=== PATIENT | male | born 1955 | race African-American/Black ===

== ENCOUNTER 2017-10-23 09:34 | Emergency (ER) | payer SELFPAY ==
[~2017-10-23] VITALS: Ht 193 cm; Wt 93.0 kg
--- NOTE | 2017-10-23 10:53 | Diagnostic Imaging Report ---
Indication: pain Right hand pain Findings: 3 views of the right hand were obtained. There is a crush injury and fracture of the distal phalange of the second finger. Soft tissue irregularity also noted. The remainder of the exam is negative. There is mild arthrosis involving most of the joints in the hand and wrist. IMPRESSION: Severe fracture of the second distal phalange
[2017-10-23 13:09] VITALS: BP 176/80
[2017-10-23] MEDS ORDERED: Bacitracin Oint UD TOPIC ONE ×2 (13:19→13:30)
[2017-10-23] MEDS ORDERED: AUGMENTIN 875-1 EAC1 ORAL (13:48)
[2017-10-23] MEDS ORDERED: NORCO 5-325 TA1 EACH ORAL (13:48)
[2017-10-23 14:00] VITALS: BP 159/98
--- NOTE | 2017-10-23 17:17 | Emergency Room Report ---
History of Present Illness General Chief Complaint: Upper Extremity Injury Source: Patient Present Illness HPI 62-year-old male presents ED with injury to his right index finger. Crush injury today at work. States the nail is loose. Tetanus is up-to-date. Pain is throbbing, 9 out of 10, nonradiating. Denies any other injuries. No other aggravating or relieving factors. Denies any other associated symptoms Allergies: Uncoded Allergies: SEAFOOD (Allergy, Unknown, 10/23/17) Patient History Past Medical History: asthma Past Surgical History: none Pertinent Family History: none Social History: Denies: smoking, alcohol use, drug use Immunizations: UTD Reviewed Nursing Documentation: PMH: Agreed, PSxH: Agreed Nursing Documentation-PMH Hx Asthma: Yes Review of Systems All Other Systems: negative except mentioned in HPI Physical Exam Vital Signs Date Time Temp Pulse Resp B/P (MAP) Pulse Ox O2 Delivery O2 Flow Rate FiO2 10/23/17 09:50 97.9 77 18 198/84 98 Room Air 97.9 Sp02 EP Interpretation: reviewed, normal General Appearance: no apparent distress, alert, GCS 15, non-toxic Head: normocephalic Eyes: bilateral eye normal inspection, bilateral eye PERRL ENT: normal ENT inspection Neck: normal inspection Respiratory: normal inspection Cardiovascular #1: normal inspection Gastrointestinal: normal inspection Rectal: deferred Genitourinary: no CVA tenderness Musculoskeletal: tender - crush injury to distal aspect R index finger. nail loose. laceration to nailbed. grossly deformed Neurologic: alert, oriented x3, responsive, motor strength/tone normal, sensory intact, speech normal Psychiatric: normal inspection Skin: normal inspection Lymphatic: normal inspection Medical Decision Making Diagnostic Impression: Primary Impression: Nailbed laceration, finger Qualified Codes: S61.319A - Laceration without foreign body of unspecified finger with damage to nail, initial encounter Additional Impression: Finger fracture Qualified Codes: S62.660A - Nondisplaced fracture of distal phalanx of right index finger, initial encounter for closed fracture ER Course Hospital Course 62-year-old male presents ED with bleeding, loose nail secondary to crush injury to right index finger Clinical course Patient placed on stretcher. After initial history and physical I ordered Xray X-ray shows significant crush injury of the right distal index finger Wound is irrigated. The nail is removed after digital block. Dr. Kirk (hand/plastics) came to assess the patient. He repaired the nail bed and reapproximated the finger. Placed in a finger splint Diagnosis - nailbed laceration, finger fx Stable and discharged to home with prescription for [place], augmentin. wound Care instructions given. Followup with Hand in 7 days for suture removal. Return to ED if any signs of infection develop Other X-Ray Diagnostic Results Other X-Ray Diagnostic Results : X-Ray ordered: R hand # of Views/Limited Vs Complete: 3 View Indication: Pain EP Interpretation: Yes Interpretation: no dislocation, other - crush fx to R distal index finger Impression: Other - fx Electronically Signed by: Electronically signed by Hardeep Gutierrez MD Last Vital Signs Date Time Temp Pulse Resp B/P (MAP) Pulse Ox O2 Delivery O2 Flow Rate FiO2 10/23/17 14:00 98.0 73 17 159/98 100 Room Air 98.0 Status: improved Disposition: HOME, SELF-CARE Condition: Stable Scripts Amoxicillin/Potassium Clav 875-125* (AUGMENTIN 875-125 TABLET*) 1 Each Tablet 1 TAB ORAL TWICE A DAY, #14 TAB Prov: HARDEEP GUTIERREZ M.D. 10/23/17 Hydrocodone Bit/Acetaminophen 5-325* (NORCO 5-325*) 1 Each Tablet 1 TAB ORAL Q6H Y for For Pain, #20 TAB 0 Refills Prov: HARDEEP GUTIERREZ M.D. 10/23/17 Referrals: RONIT KIRK M.D. NOT CHOSEN VICKIE/,REFERRING (PCP) Patient Instructions: Nail Bed Laceration HARDEEP GUTIERREZ M.D. Oct 23, 2017 17:17
== END 2017-10-23 14:00 | disposition home or self-care (01) ==
LOC: EMR 10:23
DX: S67.190A Crushing injury of right index finger, initial encounter (principal); S61.310A Laceration without foreign body of right index finger with damage to nail, initial encounter; S62.630A Displaced fracture of distal phalanx of right index finger, initial encounter for closed fracture; X58.XXXA Exposure to other specified factors, initial encounter; Y92.89 Other specified places as the place of occurrence of the external cause; J45.909 Unspecified asthma, uncomplicated
CPT/HCPCS: 99284

== ENCOUNTER 2017-11-08 11:16 | Inpatient (IN) | payer MEDICAID ==
[~2017-11-08] VITALS: Ht 193 cm; Wt 90.3 kg
[~2017-11-08 11:16] MED LIST: AUGMENTIN 875-1 EAC1 ORAL; NORCO 5-325 TA1 EACH ORAL
[2017-11-08 11:40] VITALS: BP 138/84
--- NOTE | 2017-11-08 12:44 | Emergency Room Report ---
History of Present Illness General Chief Complaint: Pain Source: Patient, Medical Record Present Illness HPI 62 yo male patient presents to ER for followup of injured right finger 2 weeks ago. Reports had nail removed and sutures placed in finger, reports fracture; reports crush injury occurred at work; reports no trauma since that time. Patient reports was wearing splint on finger until Saturday when it fell off. Reports redressed wound with tape. Reports good ROM of finger but feels pain at tip of finger. Denies fever, chest pain, SOB. Reports did not followup with primary care provider or wound specialist. Patient reports did not fill prescription for abx until 5 days ago, reports has medication remaining. Patient is right hand dominant. Allergies: Uncoded Allergies: SEAFOOD (Allergy, Unknown, 10/23/17) Patient History Reviewed Nursing Documentation: PMH: Agreed; PSxH: Agreed Nursing Documentation-PMH Past Medical History: No History, Except For Hx Asthma: Yes Review of Systems All Other Systems: negative except mentioned in HPI Physical Exam Vital Signs Date Time Temp Pulse Resp B/P (MAP) Pulse Ox O2 Delivery O2 Flow Rate FiO2 11/08/17 11:24 98.1 77 18 138/84 100 Room Air 98.1 Sp02 EP Interpretation: reviewed, normal General Appearance: well appearing, no apparent distress, alert, GCS 15, non- toxic Head: normocephalic, atraumatic Eyes: bilateral eye normal inspection, bilateral eye PERRL ENT: hearing grossly normal, normal pharynx, no angioedema, normal voice, uvula midline, moist mucus membranes Neck: full range of motion Respiratory: lungs clear, normal breath sounds, no rhonchi, no respiratory distress, no accessory muscle use, no wheezing, speaking full sentences Cardiovascular #1: regular rate, rhythm, no edema Musculoskeletal: back normal, gait/station normal, non-tender, inflammation, swelling - right index finger, other - unable to flex at PIP joint, foul odor, blood draining, tender - right index finger Neurologic: alert, oriented x3, responsive, motor strength/tone normal, sensory intact Psychiatric: mood/affect normal Skin: laceration - right index finger: 2 sutures placed, surrounding erythema and edema, white skin discoloartion Lymphatic: no adenopathy Medical Decision Making PA Attestation Dr. Vuong is my supervising Physician whom patient management has been discussed with. Diagnostic Impression: Primary Impression: Finger fracture Additional Impression: Nailbed laceration, finger ER Course Pt. presents to the ED c/o finger fracture and infection. Ddx considered but are not limited to fracture, sprain, strain, contusion, cellulitis, DVT. . Vital signs: are WNL, pt. is afebrile Ordered X-ray, labs, and pain medication. ER COURSE Patient wants to "think" about whether to be admitted or discharged AMA. Patient agreed to be admitted. Consult with Dr. Vuong. Patient seen and evaluated by Dr. Vuong. Patient will be admitted. Ordered labs, meds, and imaging for admission. EKG no ST elevation, no arrhythmia CXR negative for acute disease Labs no elevation in WBC Consult with Dr. Soliman, informed him that his patient was to be admitted. Admit to Dr. Peck for finger cellulitis. Labs Test 11/08/17 13:30 White Blood Count 9.8 K/UL (4.8-10.8) Red Blood Count 5.31 M/UL (4.70-6.10) Hemoglobin 15.1 G/DL (14.2-18.0) Hematocrit 45.8 % (42.0-52.0) Mean Corpuscular Volume 86 FL (80-99) Mean Corpuscular Hemoglobin 28.5 PG (27.0-31.0) Mean Corpuscular Hemoglobin Concent 33.0 G/DL (32.0-36.0) Red Cell Distribution Width 11.8 % (11.6-14.8) Platelet Count 329 K/UL (150-450) Mean Platelet Volume 6.5 FL (6.5-10.1) Neutrophils (%) (Auto) 59.8 % (45.0-75.0) Lymphocytes (%) (Auto) 26.6 % (20.0-45.0) Monocytes (%) (Auto) 5.5 % (1.0-10.0) Eosinophils (%) (Auto) 7.2 % (0.0-3.0) Basophils (%) (Auto) 1.0 % (0.0-2.0) Sodium Level 139 MMOL/L (136-145) Potassium Level 4.5 MMOL/L (3.5-5.1) Chloride Level 104 MMOL/L (98-107) Carbon Dioxide Level 30 MMOL/L (21-32) Anion Gap 5 mmol/L (5-15) Blood Urea Nitrogen 12 mg/dL (7-18) Creatinine 1.0 MG/DL (0.55-1.30) Estimat Glomerular Filtration Rate > 60 mL/min (>60) Glucose Level 87 MG/DL (74-106) Lactic Acid Level 0.70 mmol/L (0.66-2.22) Calcium Level 8.9 MG/DL (8.5-10.1) Total Bilirubin 0.5 MG/DL (0.2-1.0) Aspartate Amino Transf (AST/SGOT) 34 U/L (15-37) Alanine Aminotransferase (ALT/SGPT) 25 U/L (12-78) Alkaline Phosphatase 138 U/L (46-116) Total Protein 8.6 G/DL (6.4-8.2) Albumin 4.1 G/DL (3.4-5.0) Globulin 4.5 g/dL Albumin/Globulin Ratio 0.9 (1.0-2.7) EKG Diagnostic Results Rate: normal Rhythm: NSR ST Segments: no acute changes ASA given to the pt in ED: No PA Scribe Text Dusty Madrid PA-C Rhythm Strip Diag. Results EP Interpretation: yes Rate: 69 Rhythm: NSR PA Scribe Megan Madrid PA-C Chest X-Ray Diagnostic Results Chest X-Ray Diagnostic Results : Chest X-Ray Ordered: Yes # of Views/Limited/Complete: 1 View Indication: Chest Pain EP Interpretation: Yes PA Xray: Interpretation reviewed, by supervising MD, and agrees with findings. Interpretation: no consolidation, no effusion, no pneumothorax, no acute cardiopulmonary disease Impression: No acute disease PA Scribe Megan Madrid PA-C Other X-Ray Diagnostic Results Other X-Ray Diagnostic Results : # of Views/Limited Vs Complete: 2 View, 3 View Indication: Pain EP Interpretation: Yes PA Xray: Interpretation reviewed, by supervising MD, and agrees with findings. Interpretation: no dislocation, no soft tissue swelling, other - Positive for second distal phalangeal fracture Last Vital Signs Date Time Temp Pulse Resp B/P (MAP) Pulse Ox O2 Delivery O2 Flow Rate FiO2 11/08/17 11:40 98.1 18 138/84 100 Room Air 98.1 3/23/18 11:24 77 Status: improved Disposition: ADMITTED INPATIENT Condition: Serious Tejinder Madrid Nov 08, 2017 12:44
[2017-11-08] MEDS ORDERED: Ketorolac 30mg Inj IV ONE (13:30)
[2017-11-08] MEDS ORDERED: Vancomycin 1 GM in NS 275 ML IV ONE (13:30)
[2017-11-08] MEDS ORDERED: Vancomycin 1gm inj IVPB ONE (13:30)
[2017-11-08 13:49] LABS: EOSINOPHILS % (AUTO) 7.2 % (0.0-3.0); HEMATOCRIT 45.8 % (42.0-52.0); HEMOGLOBIN 15.1 G/DL (14.2-18.0); LYMPHOCYTES % (AUTO) 26.6 % (20.0-45.0); MEAN CORPUSCULAR VOLUME 86 FL (80-99); MONOCYTES % (AUTO) 5.5 % (1.0-10.0); NEUTROPHILS % (AUTO) 59.8 % (45.0-75.0); PLATELET COUNT 329 K/UL (150-450); RED BLOOD COUNT 5.31 M/UL (4.70-6.10); RED CELL DISTRIBUTION WIDTH 11.8 % (11.6-14.8); WHITE BLOOD COUNT 9.8 K/UL (4.8-10.8)
[2017-11-08 13:59] LABS: ANION GAP 5 mmol/L (5-15); BLOOD UREA NITROGEN 12 mg/dL (7-18); CALCIUM 8.9 MG/DL (8.5-10.1); CARBON DIOXIDE 30 MMOL/L (21-32); CHLORIDE 104 MMOL/L (98-107); POTASSIUM 4.5 MMOL/L (3.5-5.1); SODIUM 139 MMOL/L (136-145)
[2017-11-08 14:03] LABS: ALANINE AMINOTRANSFERASE 25 U/L (12-78); ALBUMIN 4.1 G/DL (3.4-5.0); ALBUMIN/GLOBULIN RATIO 0.9 (1.0-2.7); ALKALINE PHOSPHATASE 138 U/L (46-116); ASPARTATE AMINO TRANSFERASE 34 U/L (15-37); BILIRUBIN,TOTAL 0.5 MG/DL (0.2-1.0)
[2017-11-08] MEDS ORDERED: ALBUTEROL2.5 MG/3 M INH (14:51)
[2017-11-08 16:00] VITALS: BP 173/112
--- NOTE | 2017-11-08 17:40 | Diagnostic Imaging Report ---
Indication: Chest pain Technique: One view of the chest Comparison: none Findings: Lungs and pleural spaces are clear. Heart size is normal Impression: No acute process
--- NOTE | 2017-11-08 17:43 | Diagnostic Imaging Report ---
Indication: Reason For Exam: PAIN Technique: 3 views right hand Comparison: none Findings: Is a comminuted fracture of the distal shaft of the second distal phalanx. No definite radiopaque foreign body. No worrisome soft tissue gas. No other acute fractures. No dislocations. The joint spaces are preserved. Impression: Positive for second distal phalangeal fracture Findings discussed by phone with Dr. Peck at the time of interpretation
[2017-11-08] MEDS: Albuterol ud Inhalation HHN SCH ×4 (17:48→23:50)
[2017-11-08 20:00] VITALS: BP 156/93
[2017-11-08] MEDS: Vancomycin 1250mg/D5W 250ml IVPB SCH (22:03)
[2017-11-09] VITALS: BP 153/98
[2017-11-09] MEDS: Piperacillin/Tazobactam 3.375 GM in D5W 110 ML IVPB SCH ×4 (00:27→23:48)
--- NOTE | 2017-11-09 02:00 | History and Physical Report ---
DATE OF ADMISSION: 11/08/2017 CHIEF COMPLAINT: Right second finger infection. HISTORY OF PRESENT ILLNESS: The patient is a pleasant 62-year-old male. He apparently suffered a laceration and crush injury to his right second digit. He required surgery. This is little over a week and half ago. He did well. He was supposed to take antibiotics, but because of problems with insurance, he is unable to go with antibiotics. Several days prior to admission, he noted worsening pain and swelling of his finger. He presented to the emergency room. There is concern about a possible wound infection. His plastic surgeon was contacted. It was recommended that the patient be admitted and evaluated and started on antibiotics. PAST MEDICAL HISTORY: Significant only for asthma. PAST SURGICAL HISTORY: None. CURRENT MEDICATIONS: Include asthma inhalers. SOCIAL HISTORY: The patient is a drinker approximately two beers a day. No drugs. FAMILY HISTORY: Noncontributory. REVIEW OF SYSTEMS: Negative except for right second finger pain. PHYSICAL EXAMINATION: VITAL SIGNS: Temperature 98 degrees, pulse 65, respirations 20, and blood pressure 136/93. GENERAL: The patient is a well-developed, in no apparent distress. HEART: Regular. LUNGS: Clear. ABDOMEN: Soft. EXTREMITIES: No clubbing or cyanosis. The tip of the right finger is red, swollen, and macerated. There is no gross discharge or purulent smell. LABORATORY DATA: The white count was 9.8. ASSESSMENT: This is a pleasant male, status post crush injury with a surgical repair of the right second finger with a possible wound infection now. PLAN: IV antibiotics. Plastic followup. Pain control. Avery Peck M.D. DR: Fernando JOB#: [id number] CC:
[2017-11-09 04:00] VITALS: BP 143/87
[2017-11-09 07:54] LABS: BASOPHILS % (AUTO) 0.9 % (0.0-2.0); EOSINOPHILS % (AUTO) 7.7 % (0.0-3.0); HEMATOCRIT 43.1 % (42.0-52.0); HEMOGLOBIN 14.6 G/DL (14.2-18.0); MEAN CORPUSCULAR VOLUME 86 FL (80-99); MONOCYTES % (AUTO) 6.7 % (1.0-10.0); NEUTROPHILS % (AUTO) 64.7 % (45.0-75.0); PLATELET COUNT 298 K/UL (150-450); RED BLOOD COUNT 5.01 M/UL (4.70-6.10); RED CELL DISTRIBUTION WIDTH 11.9 % (11.6-14.8); WHITE BLOOD COUNT 8.3 K/UL (4.8-10.8)
[2017-11-09 08:00] VITALS: BP 140/80
[2017-11-09 08:16] LABS: ALANINE AMINOTRANSFERASE 26 U/L (12-78); ALBUMIN 3.7 G/DL (3.4-5.0); ALBUMIN/GLOBULIN RATIO 0.9 (1.0-2.7); ALKALINE PHOSPHATASE 128 U/L (46-116); ANION GAP 7 mmol/L (5-15); ASPARTATE AMINO TRANSFERASE 27 U/L (15-37); BILIRUBIN,TOTAL 0.8 MG/DL (0.2-1.0); BLOOD UREA NITROGEN 11 mg/dL (7-18); CALCIUM 8.8 MG/DL (8.5-10.1); CARBON DIOXIDE 30 MMOL/L (21-32); CHLORIDE 102 MMOL/L (98-107); POTASSIUM 3.7 MMOL/L (3.5-5.1); SODIUM 139 MMOL/L (136-145)
[2017-11-09] MEDS: Albuterol ud Inhalation HHN SCH ×5 (09:18→23:00)
--- NOTE | 2017-11-09 09:39 | General Progress Note ---
Assessment/Plan Problem List: (1) Finger fracture ICD Codes: S62.609A - Fracture of unspecified phalanx of unspecified finger, initial encounter for closed fracture SNOMED: 91516712 (2) Nailbed laceration, finger ICD Codes: S61.319A - Laceration without foreign body of unspecified finger with damage to nail, initial encounter SNOMED: 038648490 (3) Cellulitis ICD Codes: L03.90 - Cellulitis, unspecified SNOMED: 987624990 Status: stable Assessment/Plan iv abx await plastics pain rx resp rx Subjective ROS Limited/Unobtainable: No Constitutional: Reports: malaise, weakness HEENT: Reports: no symptoms Cardiovascular: Reports: no symptoms Respiratory: Reports: wheezing Gastrointestinal/Abdominal: Reports: no symptoms Genitourinary: Reports: no symptoms Neurologic/Psychiatric: Reports: no symptoms Endocrine: Reports: no symptoms Hematologic/Lymphatic: Reports: no symptoms Allergies: Uncoded Allergies: SEAFOOD (Allergy, Unknown, 10/23/17) All Systems: reviewed and negative except above Subjective c/o wheezing Objective Last 24 Hour Vital Signs Date Time Temp Pulse Resp B/P (MAP) Pulse Ox O2 Delivery O2 Flow Rate FiO2 11/09/17 09:13 71 143/87 11/09/17 04:00 98.1 71 20 143/87 100 Room Air 98.1 11/09/17 03:00 Room Air 11/09/17 03:00 Room Air 21 11/09/17 00:00 97.2 78 19 153/98 98 Room Air 97.2 11/08/17 23:55 72 16 99 Room Air 21 11/08/17 23:50 21 11/08/17 23:50 72 16 95 Room Air 21 11/08/17 22:36 Room Air 11/08/17 22:36 Room Air 11/08/17 20:00 98.1 65 20 156/93 99 Room Air 98.1 11/08/17 19:36 Room Air 11/08/17 19:36 Room Air 11/08/17 17:49 68 16 99 Room Air 21 11/08/17 17:40 69 16 96 Room Air 21 11/08/17 17:40 21 11/08/17 17:29 71 154/95 11/08/17 16:00 97.7 65 21 173/112 98 Room Air 97.7 11/08/17 15:52 98.1 18 13884 100 Room Air 98.1 11/08/17 14:14 98.1 11/08/17 11:40 98.1 18 13884 100 Room Air 98.1 11/08/17 11:24 98.1 77 18 13884 100 Room Air 98.1 Intake and Output 11/08/17 11/09/17 19:00 07:00 Intake Total 240 ml 560.000 ml Balance 240 ml 560.000 ml Intake Oral 240 ml 200 ml IV Total 360.000 ml # Voids 2 Laboratory Tests 11/08/17 13:30: White Blood Count 9.8, Red Blood Count 5.31, Hemoglobin 15.1, Hematocrit 45.8, Mean Corpuscular Volume 86, Mean Corpuscular Hemoglobin 28.5, Mean Corpuscular Hemoglobin Concent 33.0, Red Cell Distribution Width 11.8, Platelet Count 329, Mean Platelet Volume 6.5, Neutrophils (%) (Auto) 59.8, Lymphocytes (%) (Auto) 26.6, Monocytes (%) (Auto) 5.5, Eosinophils (%) (Auto) 7.2H, Basophils (%) (Auto ) 1.0, Sodium Level 139, Potassium Level 4.5, Chloride Level 104, Carbon Dioxide Level 30, Anion Gap 5, Blood Urea Nitrogen 12, Creatinine 1.0, Estimat Glomerular Filtration Rate > 60, Glucose Level 87, Lactic Acid Level 0.70, Calcium Level 8.9, Total Bilirubin 0.5, Aspartate Amino Transf (AST/SGOT) 34, Alanine Aminotransferase (ALT/SGPT) 25, Alkaline Phosphatase 138H, Total Protein 8.6H, Albumin 4.1, Globulin 4.5, Albumin/Globulin Ratio 0.9L 11/09/17 07:00: White Blood Count 8.3, Red Blood Count 5.01, Hemoglobin 14.6, Hematocrit 43.1, Mean Corpuscular Volume 86, Mean Corpuscular Hemoglobin 29.2, Mean Corpuscular Hemoglobin Concent 33.9, Red Cell Distribution Width 11.9, Platelet Count 298, Mean Platelet Volume 6.6, Neutrophils (%) (Auto) 64.7, Lymphocytes (%) (Auto) 20.0, Monocytes (%) (Auto) 6.7, Eosinophils (%) (Auto) 7.7H, Basophils (%) (Auto ) 0.9, Sodium Level 139, Potassium Level 3.7, Chloride Level 102, Carbon Dioxide Level 30, Anion Gap 7, Blood Urea Nitrogen 11, Creatinine 1.0, Estimat Glomerular Filtration Rate > 60, Glucose Level 100, Calcium Level 8.8, Total Bilirubin 0.8, Aspartate Amino Transf (AST/SGOT) 27, Alanine Aminotransferase ( ALT/SGPT) 26, Alkaline Phosphatase 128H, Total Protein 7.8, Albumin 3.7, Globulin 4.1, Albumin/Globulin Ratio 0.9L Height (Feet): 6 Height (Inches): 4.00 Weight (Pounds): 199 General Appearance: WD/WN, alert Cardiovascular: normal rate Respiratory/Chest: expiratory wheezing Abdomen: normal bowel sounds, non tender, soft, no organomegaly Neurologic: alert JULIET CELIS Nov 09, 2017 09:39
[2017-11-09] MEDS: Vancomycin 1250mg/D5W 250ml IVPB SCH ×2 (11:00→22:03)
[2017-11-09 12:00] VITALS: BP 145/103
[2017-11-09 16:00] VITALS: BP 128/81
[2017-11-09] MEDS ORDERED: Tubing IV Secondary IV ONE (17:30)
[2017-11-09] MEDS ORDERED: NS 275ml ONE (17:30)
[2017-11-09 20:00] VITALS: BP 142/80
[2017-11-10] VITALS: BP 136/81
[2017-11-10] MEDS: Albuterol ud Inhalation HHN SCH ×3 (01:42→11:00)
[2017-11-10 04:00] VITALS: BP 155/94
[2017-11-10] MEDS: Piperacillin/Tazobactam 3.375 GM in D5W 110 ML IVPB SCH (05:59)
[2017-11-10 08:00] VITALS: BP 133/16
--- NOTE | 2017-11-10 08:33 | General Progress Note ---
Assessment/Plan Problem List: (1) Finger fracture ICD Codes: S62.609A - Fracture of unspecified phalanx of unspecified finger, initial encounter for closed fracture SNOMED: 58343222 (2) Nailbed laceration, finger ICD Codes: S61.319A - Laceration without foreign body of unspecified finger with damage to nail, initial encounter SNOMED: 077457407 (3) Cellulitis ICD Codes: L03.90 - Cellulitis, unspecified SNOMED: 266483129 Status: stable Assessment/Plan iv abx await plastics- message left pain rx resp rx Subjective ROS Limited/Unobtainable: No HEENT: Reports: no symptoms Cardiovascular: Reports: no symptoms Respiratory: Reports: no symptoms Gastrointestinal/Abdominal: Reports: no symptoms Genitourinary: Reports: no symptoms Neurologic/Psychiatric: Reports: no symptoms Endocrine: Reports: no symptoms Hematologic/Lymphatic: Reports: no symptoms Allergies: Uncoded Allergies: SEAFOOD (Allergy, Unknown, 10/23/17) All Systems: reviewed and negative except above Subjective decrease pain right finger still not seen by plastics left message with Objective Last 24 Hour Vital Signs Date Time Temp Pulse Resp B/P (MAP) Pulse Ox O2 Delivery O2 Flow Rate FiO2 11/10/17 08:00 98.1 70 20 133/16 99 Room Air 98.1 11/10/17 07:16 Room Air 11/10/17 07:15 Room Air 11/10/17 05:21 Room Air 11/10/17 04:00 98.1 74 18 155/94 100 Room Air 98.1 11/10/17 03:00 Room Air 11/10/17 01:47 75 16 99 Room Air 21 11/10/17 01:42 21 11/10/17 01:42 75 16 95 Room Air 11/10/17 00:00 97.5 68 18 136/81 100 97.5 11/09/17 23:15 Room Air 21 11/09/17 23:15 Room Air 21 11/09/17 20:00 97.9 60 18 142/80 100 Room Air 97.9 11/09/17 19:55 Room Air 11/09/17 19:55 Room Air 21 11/09/17 16:00 97.9 68 18 128/81 100 Room Air 97.9 11/09/17 15:08 Room Air 21 11/09/17 15:07 Room Air 11/09/17 14:04 145/103 11/09/17 12:00 98.0 72 20 145/103 99 Room Air 98.0 11/09/17 11:00 Room Air 11/09/17 11:00 Room Air 11/09/17 09:30 73 16 99 Room Air 11/09/17 09:19 70 16 95 Room Air 11/09/17 09:19 21 11/09/17 09:13 71 143/87 Intake and Output 11/09/17 11/10/17 19:00 07:00 Intake Total 1003.334 ml 627.500 ml Balance 1003.334 ml 627.500 ml Intake Oral 560 ml 240 ml IV Total 443.334 ml 387.500 ml # Voids 5 3 Height (Feet): 6 Height (Inches): 4.00 Weight (Pounds): 199 Objective right 2nd finger dressed JULIET CELIS Nov 10, 2017 08:33
[2017-11-10] MEDS: Vancomycin 1250mg/D5W 250ml IVPB SCH (11:59)
[2017-11-10 12:00] VITALS: BP 138/98
--- NOTE | 2017-11-11 19:28 | Cardiology Report ---
APPROVED REPORT EKG Measurement Heart [id number] MI [id number] Normal sinus rhythm Normal ECG
--- NOTE | 2017-11-13 08:08 | Discharge Summary ---
Discharge Summary Hospital Course Date of Admission Nov 08, 2017 at 14:19 Date of Discharge Nov 10, 2017 at 13:56 Admitting Diagnosis FINGER CELLULITIS ROLANDO Chowdhury is a 62 year old male who was admitted on Nov 08, 2017 at 14: 19 for Finger Cellulitis Hospital Course dc summary #[id number] Discharge Discharge Disposition Patient signed AMA Discharge Instructions Discharge Instructions Special Instructions I have been assigned to complete a D/C Summary on this account. I was not involved in the patient management Ramya Sigala NP ([facility]) Nov 13, 2017 08:08
--- NOTE | 2017-11-14 08:46 | Discharge Summary 2 SIG ---
DATE OF ADMISSION: 11/08/2017 DATE OF DISCHARGE: 11/10/2017 REASON FOR ADMISSION: The patient is a 62-year-old male who sustained crush injury at work with a fracture of the right second finger, had nail removal with suturing, no trauma since that time. The patient was wearing a splint until it fell off. The patient redressed wound with pain. He reported good range of motion but felt pain at the tip of the finger. The patient did not fill prescription for antibiotics until few days recently due to the insurance issue. He denied fever, chest pain, shortness of breath. The patient was right-hand dominant. X-ray of the right hand shows a second distal phalangeal fracture of the right second finger. Vital signs were stable. No fever. Right index finger with two sutures, surrounding erythema and edema with white skin discoloration. The patient was medicated for pain. Chest x-ray revealed no acute cardiopulmonary pathology. EKG revealed no acute ischemic changes, no leukocytosis, stable otherwise. The patient admitted to Med/Surg floor with diagnoses of nail fracture, nail bed laceration, possible wound infection. HOSPITAL COURSE: The patient admitted to Med/Surg floor. Plastic surgery consult was requested. The patient started on empiric IV antibiotics. Pain management provided. The patient neurovascularly was intact. Blood pressure was managed with calcium channel giovanny and clonidine as needed. The patient decided to sign against medical advice. The risks and consequences of signing against medical advice were discussed with the patient. The patient verbalized understanding, signed AMA form and left. FINAL DIAGNOSES: Include: 1. Right second finger fracture. 2. Nail bed laceration. 3. Cellulitis right second finger distal phalangeal fracture. Avery Peck M.D. I have been assigned to dictate discharge summary on this account and I was not involved in the patient's management. Ramya Sigala (vanchtein) N.PKavitha DR: Uriel JOB#: [id number] CC:
== END 2017-11-10 13:56 | disposition left against medical advice (07) | DRG 721 ==
LOC: EMR 12:25 → CANBEDREQ 13:43 → 4E 14:19 → EDBEDREQ 14:53
DX: T81.4XXA Infection following a procedure, initial encounter (principal); J45.909 Unspecified asthma, uncomplicated; L03.011 Cellulitis of right finger; S62.60 Fracture of unspecified phalanx of finger; X58.XXXS Exposure to other specified factors, sequela
CPT/HCPCS: 36415; 71045; 80053; 80202; 83605; 85025; 87040; 93005; 94640; 99285

== ENCOUNTER 2017-12-30 11:38 | Emergency (ER) | payer MEDICAID ==
[~2017-12-30] VITALS: Ht 193 cm; Wt 94.8 kg
[~2017-12-30 11:38] MED LIST changes: +ALBUTEROL2.5 MG/3 M INH
[2017-12-30 12:00] VITALS: BP 139/84
--- NOTE | 2017-12-30 12:32 | Emergency Room Report ---
History of Present Illness General Chief Complaint: Skin Rash/Abscess Source: Patient Present Illness HPI 62 YO Male presents to the ED c/o Itchy nonpainful rash to the glans penis underneath the foreskin 14 days. Patient reports he does not have any dysuria or discharge. Patient states that he has been on long course of antibiotics he recently received IV antibiotics as well he was admitted for open finger fracture which was infected a few weeks ago. He denies abdominal pain, tenderness, testicular pain or swelling.Denies lesions/rashes elsewhere on the body. Denies new medications or body washes or creams. Denies swelling of the lips, tongue , throat or airway. Denies wheezing, or shortness of breath. Denies recent travel, recent illness or ill contacts. denies blisters, oral lesions, or sloughing of the skin. Denies numbness tingling or loss of sensation or gross motor movements of the extremities, incontinence of bowel or bladder. Denies CP, Palpitations, LOC, AMS, dizziness, Changes in Vision, Sensation, paresthesias, or a sudden severe headache. Allergies: Uncoded Allergies: SEAFOOD (Allergy, Unknown, 10/23/17) Patient History Past Medical History: see triage record Past Surgical History: none Pertinent Family History: none Reviewed Nursing Documentation: PMH: Agreed; PSxH: Agreed Nursing Documentation-PMH Past Medical History: No History, Except For Hx Cardiac Problems: Yes Hx Hypertension: Yes Hx Asthma: Yes Hx Cancer: No Hx Gastrointestinal Problems: Yes Hx Neurological Problems: No Review of Systems All Other Systems: negative except mentioned in HPI Physical Exam Vital Signs Date Time Temp Pulse Resp B/P (MAP) Pulse Ox O2 Delivery O2 Flow Rate FiO2 12/30/17 11:52 98.4 75 20 149/90 96 Room Air 98.4 Medical Decision Making PA Attestation Dr. Amaya is my supervising Physician whom patient management has been discussed with. Diagnostic Impression: Primary Impression: Skin yeast infection ER Course 62 YO Male presents to the ED c/o Itchy nonpainful rash to the glans penis underneath the foreskin 14 days. Patient reports he does not have any dysuria or discharge. Patient states that he has been on long course of antibiotics he recently received IV antibiotics as well he was admitted for open finger fracture which was infected a few weeks ago. He denies abdominal pain, tenderness, testicular pain or swelling.Denies lesions/rashes elsewhere on the body. Denies new medications or body washes or creams. Denies swelling of the lips, tongue , throat or airway. Denies wheezing, or shortness of breath. Denies recent travel, recent illness or ill contacts. denies blisters, oral lesions, or sloughing of the skin. Denies numbness tingling or loss of sensation or gross motor movements of the extremities, incontinence of bowel or bladder. Denies CP, Palpitations, LOC, AMS, dizziness, Changes in Vision, Sensation, paresthesias, or a sudden severe headache. Ddx considered but are not limited to UTi , Urethritis, LGV, STI, Stone, Cystitis, prostatitis Seed Buyer for PE was: [ ]. Vital signs: are WNL, pt. is afebrile H&PE are most consistent with Urethritis ORDERS: - UA : -Urine G & C Testing : pending ED INTERVENTIONS: -250mg Rocephin IM DISCHARGE: At this time pt. is stable for d/c to home. Will provide printed patient care instructions, and any necessary prescriptions. Care plan and follow up instructions have been discussed with the patient prior to discharge. Last Vital Signs Date Time Temp Pulse Resp B/P (MAP) Pulse Ox O2 Delivery O2 Flow Rate FiO2 12/30/17 11:52 98.4 75 20 149/90 96 Room Air 98.4 Disposition: HOME, SELF-CARE Condition: Stable Scripts Nystatin* (NYSTATIN*) 15 Gm Cream..g. 1 APPLIC TOPIC THREE TIMES A DAY, #15 GM Prov: Bella Limon P.A. 12/30/17 Clotrimazole* (LOTRIMIN*) 15 Gm Cream..g. 1 APPLIC TOPIC TWICE A DAY, #15 GM Prov: Bella Limon P.A. 12/30/17 Patient Instructions: Genital Yeast Infection, Male Additional Instructions: Take medications as directed. Follow up with a Primary Care Provider in 3-5 days, even if your symptoms have resolved. --Please review list of primary care clinics, if you do not already have a primary care provider Return sooner to ED if new symptoms occur, or current symptoms become worse. - Please note that this Emergency Department Report was dictated using [employer] maker technology software, occasionally this can lead to erroneous entry secondary to interpretation by the dictation equipment. Bella Limon December 30, 2017 12:32
[2017-12-30] MEDS ORDERED: CLOTRIMAZOLE15 GM TOPIC (12:40)
[2017-12-30] MEDS ORDERED: NYSTATIN15 GM TOPIC (12:42)
[2017-12-30 12:46] VITALS: BP 142/90
== END 2017-12-30 12:46 | disposition home or self-care (01) ==
LOC: EMR 12:35
DX: B37.2 Candidiasis of skin and nail (principal); I10 Essential (primary) hypertension; J45.909 Unspecified asthma, uncomplicated; Z91.013 Allergy to seafood
CPT/HCPCS: 99284

== ENCOUNTER 2018-03-03 08:33 | Emergency (ER) | payer MEDICAID, OTHER ==
[~2018-03-03] VITALS: Ht 193 cm; Wt 91.6 kg
[~2018-03-03 08:33] MED LIST changes: +CLOTRIMAZOLE15 GM TOPIC; +NYSTATIN15 GM TOPIC
[2018-03-03 08:51] VITALS: BP 129/81
[2018-03-03] MEDS: Albuterol ud Inhalation HHN SCH ×2 (09:11→09:44)
[2018-03-03] MEDS: Ipratropium 0.02% Inh Soln 2.5ml UD HHN SCH ×2 (09:11→09:44)
[2018-03-03] MEDS ORDERED: PREDNISONE20 MG ORAL (09:33)
[2018-03-03] MEDS ORDERED: PROAIR HFA8.5 GM INH (09:33)
[2018-03-03 09:44] VITALS: BP 129/81
--- NOTE | 2018-03-03 10:16 | Emergency Room Report ---
History of Present Illness General Chief Complaint: Dyspnea/Respdistress Source: Patient Present Illness HPI 62-year-old male presents ED complaining of shortness of breath and wheezing. History of asthma. States he ran out of his inhaler yesterday. Denies fevers or chills. Denies cough. Denies chest pain. No other aggravating relieving factors. Denies any other associated symptoms Allergies: Uncoded Allergies: SEAFOOD (Allergy, Unknown, 10/23/17) Patient History Past Medical History: HTN, asthma Past Surgical History: none Pertinent Family History: none Social History: Denies: smoking, alcohol use, drug use Immunizations: UTD Reviewed Nursing Documentation: PMH: Agreed; PSxH: Agreed Nursing Documentation-PMH Past Medical History: No History, Except For Hx Cardiac Problems: Yes Hx Hypertension: Yes Hx Asthma: Yes Hx Cancer: No Hx Gastrointestinal Problems: Yes Hx Neurological Problems: No Review of Systems All Other Systems: negative except mentioned in HPI Physical Exam Vital Signs Date Time Temp Pulse Resp B/P (MAP) Pulse Ox O2 Delivery O2 Flow Rate FiO2 03/03/18 08:45 98.4 78 24 129/81 94 Room Air 98.4 Sp02 EP Interpretation: reviewed, normal General Appearance: no apparent distress, alert, GCS 15, non-toxic Head: normocephalic, atraumatic Eyes: bilateral eye normal inspection, bilateral eye PERRL ENT: hearing grossly normal, normal pharynx, no angioedema, normal voice Neck: full range of motion, supple/symm/no masses Respiratory: chest non-tender, decreased breath sounds, speaking full sentences , wheezing Cardiovascular #1: regular rate, rhythm, no edema Cardiovascular #2: 2+ carotid (R), 2+ carotid (L), 2+ radial (R), 2+ radial (L) , 2+ dorsalis pedis (R), 2+ dorsalis pedis (L) Gastrointestinal: normal bowel sounds, non tender, soft, non-distended, no guarding, no rebound Rectal: deferred Genitourinary: normal inspection, no CVA tenderness Musculoskeletal: back normal, gait/station normal, normal range of motion, non- tender Neurologic: alert, oriented x3, responsive, motor strength/tone normal, sensory intact, speech normal Psychiatric: judgement/insight normal, memory normal, mood/affect normal, no suicidal/homicidal ideation Reflexes: 3+ bicep (R), 3+ bicep (L), 3+ tricep (R), 3+ tricep (L), 3+ knee (R) , 3+ knee (L) Skin: normal color, no rash, warm/dry, well hydrated Lymphatic: no adenopathy Medical Decision Making Diagnostic Impression: Primary Impression: Asthma exacerbation Qualified Codes: J45.901 - Unspecified asthma with (acute) exacerbation ER Course Hospital Course 62 year-old male presents to ED complaining of SOB, wheezing Differential diagnoses include: URI, bronchitis, asthma/COPD, pneumonia Clinical course Patient placed on stretcher. After initial history, physical exam reveals an elderly male in no acute distress. Bilateral TM unremarkable. No pharyngeal erythema. No tonsillar exudates. No lymphadenopathy. Mild wheezing noted on exam, no signs of respiratory distress or retractions. Patient given Prednisone and albuterol/atrovent treatment in ED with symptoms improved. Reassurance given Diagnosis - asthma exacerbation Stable and discharged home with prescriptions for prednisone, albuterol. Instructed to followup with PMD. Return to ED if symptoms recur or worsen Last Vital Signs Date Time Temp Pulse Resp B/P (MAP) Pulse Ox O2 Delivery O2 Flow Rate FiO2 03/03/18 09:44 98.4 78 18 129/81 96 Room Air 98.4 Status: improved Disposition: HOME, SELF-CARE Condition: Stable Scripts Prednisone* (PREDNISONE*) 20 Mg Tablet 40 MG ORAL DAILY, #10 TAB Prov: Hardeep Gutierrez MD 03/03/18 Albuterol Sulfate* (PROAIR HFA*) 8.5 Gm Hfa.aer.ad 2 PUFFS INH Q6H, #8.5 GM 0 Refills Prov: Hardeep Gutierrez MD 03/03/18 Referrals: NOT CHOSEN IPA/,REFERRING (PCP) Patient Instructions: Asthma, Adult, [id number] Hardeep Gutierrez MD Mar 03, 2018 10:16
== END 2018-03-03 09:46 | disposition home or self-care (01) ==
LOC: EMR 09:31
DX: J45.901 Unspecified asthma with (acute) exacerbation (principal); I10 Essential (primary) hypertension
CPT/HCPCS: 94640; 94664; 99284; J7512

== ENCOUNTER 2018-08-13 11:54 | Emergency (ER) | payer OTHER ==
[~2018-08-13] VITALS: Ht 193 cm; Wt 92.1 kg
[~2018-08-13 11:54] MED LIST changes: +PREDNISONE20 MG ORAL; +PROAIR HFA8.5 GM INH
[2018-08-13 12:10] VITALS: BP 157/103
--- NOTE | 2018-08-13 12:22 | Emergency Room Report ---
History of Present Illness General Chief Complaint: Asthma Source: Patient Present Illness HPI 63-year-old male patient presents the ER requesting refill of medication. States that he can get a refill of of his asthma medication and while he was here he began to experience wheezing symptoms. Reports that he was sick last week. Reports that he uses his inhaler every day. Denies history of COPD. Denies smoking or cigarette use. Denies marijuana use. Denies fever, chest pain, shortness of breath. Denies history of ND. Denies history of COPD. Denies calf pain. Denies recent travel. Denies neck pain. Reports that he cough and subjective fever last week however denies symptoms currently over the past week. Allergies: Uncoded Allergies: SEAFOOD (Allergy, Unknown, 10/23/17) Patient History Past Medical History: see triage record Reviewed Nursing Documentation: PMH: Agreed; PSxH: Agreed Nursing Documentation-PM Past Medical History: No History, Except For Hx Cardiac Problems: Yes Hx Hypertension: Yes Hx Asthma: Yes Hx Cancer: No Hx Gastrointestinal Problems: Yes Hx Neurological Problems: No Review of Systems All Other Systems: negative except mentioned in HPI Physical Exam Vital Signs Date Time Temp Pulse Resp B/P (MAP) Pulse Ox O2 Delivery O2 Flow Rate FiO2 08/13/18 12:10 97.9 82 22 157/103 95 Room Air Sp02 EP Interpretation: reviewed, normal General Appearance: well appearing, no apparent distress, alert, GCS 15, non- toxic Head: normocephalic, atraumatic Eyes: bilateral eye normal inspection, bilateral eye PERRL ENT: hearing grossly normal, normal pharynx, no angioedema, normal voice, uvula midline, moist mucus membranes Neck: full range of motion Respiratory: no rhonchi, no respiratory distress, no accessory muscle use, speaking full sentences, wheezing Cardiovascular #1: regular rate, rhythm, no edema Cardiovascular #2: 2+ radial (L), 2+ femoral (R) Gastrointestinal: non tender, soft, no mass, non-distended, no guarding, no rebound Musculoskeletal: back normal, digits/nails normal, gait/station normal, normal range of motion, non-tender, no calf tenderness, Amy's Sign negative Neurologic: alert, oriented x3, responsive, motor strength/tone normal, sensory intact Psychiatric: mood/affect normal Medical Decision Making PA Attestation Dr. Rios is my supervising Physician whom patient management has been discussed with. Diagnostic Impression: Primary Impression: Asthma exacerbation ER Course Pt presents to ED c/o asthma symptoms. DDX considered but are not limited to asthma, viral URI, influenza, bronchitis, pneumonia. VITAL SIGNS are WNL, patient is afebrile. Ordered breathing treatment and medication. ER COURSE Patient provided with prednisone Duoneb breathing treatment provided. Chest x-ray shows no acute disease per the preliminary reading. Following treatment patient states no longer having difficulty with breathing, sounds improved, mild wheezing still noted. Patient is resting comfortably in no acute distress. ER precautions given. Follow-up with primary care provider for further evaluation and treatment. DISCHARGE: -Rx given for Prednisone. First dose given in ER, begin taking medication tomorrow. -Rx provided for Albuterol MDI. At this time pt is stable for d/c to home. Patient is resting comfortably in no acute distress, nontoxic appearing, able to answer questions without difficulty. Patient to take medications as instructed Will provide with patient care instructions and any necessary prescriptions. Care plan and follow-up instructions provided. Patient instructed to follow-up with primary care provider in 3 - 5 days. Patient questions asked and answered. Patient reports understanding and agreement to treatment plan. ER precautions given. Patient instructed to return to ER immediately for any new or worsening of symptoms including but not limited to increasing SOB, persistent fever. - Please note that this Emergency Department Report was dictated using [employer] tester technology software, occasionally this can lead to erroneous entry secondary to interpretation by the dictation equipment. Chest X-Ray Diagnostic Results Chest X-Ray Diagnostic Results : Chest X-Ray Ordered: Yes # of Views/Limited/Complete: 1 View Indication: Other - wheezing EP Interpretation: Yes PA Xray: Interpretation reviewed, by supervising MD, and agrees with findings. Interpretation: no consolidation, no effusion, no pneumothorax, no acute cardiopulmonary disease Impression: No acute disease JONATHAN Scribe Text Dusty Madrid PA-C Last Vital Signs Date Time Temp Pulse Resp B/P (MAP) Pulse Ox O2 Delivery O2 Flow Rate FiO2 08/13/18 12:10 97.9 82 22 157/103 95 Room Air Disposition: HOME, SELF-CARE Condition: Stable Scripts Albuterol Sulfate* (ALBUTEROL SULFATE MDI*) 8.5 Gm Hfa.aer.ad 2 PUFF INH Q6H, #1 INH 0 Refills Prov: Tejinder Madrid 08/13/18 Prednisone* (PREDNISONE*) 20 Mg Tablet 40 MG ORAL DAILY for 4 Days, #8 TAB Prov: Tejinder Madrid 08/13/18 Patient Instructions: Asthma, Adult Additional Instructions: Followup with primary care provider in 3 -5 days. Discuss asthma medications. Take medications as directed. Patient questions asked and answered. ER precautions given, patient instructed to return to ER immediately for any new or worsening of symptoms. Tejinder Madrid Aug 13, 2018 12:22
[2018-08-13] MEDS ORDERED: Albuterol/Ipratropium 3ml neb HHN ONE (12:30)
--- NOTE | 2018-08-13 12:45 | Diagnostic Imaging Report ---
Indication: Cough Technique: XRAY Chest 1v Comparison: 11/08/2017 Findings: Heart size and mediastinal contours are within normal limits for AP technique and stable compared to the prior exam. There is no focal consolidation, pneumothorax or pleural effusion. Osseous structures demonstrate no acute abnormality. Impression: No radiographic evidence of acute cardiopulmonary disease.
[2018-08-13] MEDS ORDERED: ALBUTEROL SULF8.5 GM INH (13:34)
[2018-08-13] MEDS ORDERED: PREDNISONE20 MG ORAL (13:34)
[2018-08-13 13:42] VITALS: BP 140/80
== END 2018-08-13 13:45 | disposition home or self-care (01) ==
LOC: EMR 13:15
DX: J45.901 Unspecified asthma with (acute) exacerbation (principal); Z76.0 Encounter for issue of repeat prescription; Z91.013 Allergy to seafood; I10 Essential (primary) hypertension
CPT/HCPCS: 71045; 94640; 99284; J7512; J7620

== ENCOUNTER 2018-11-21 13:42 | Emergency (ER) | payer OTHER ==
[~2018-11-21] VITALS: Ht 193 cm; Wt 92.5 kg
[~2018-11-21 13:42] MED LIST changes: +ALBUTEROL SULF8.5 GM INH
[2018-11-21 13:54] VITALS: BP 146/93
[2018-11-21] MEDS ORDERED: Albuterol/Ipratropium 3ml neb HHN ONE (14:00)
--- NOTE | 2018-11-21 14:15 | Emergency Room Report ---
History of Present Illness General Chief Complaint: Asthma Source: Patient Present Illness HPI 63-year-old male patient presents the ER complaining of "my asthma is acting up " the past several days. Reports history of asthma, states ran out of his asthma medication. Reports wheezing, reports symptoms worse at night. Denies fever. Denies chest pain. Requesting refill of asthma medication and breathing treatment. Denies other aggravating or relieving factors. States has not followed up with primary care provider since previous visit to the ER, previously seen here for similar symptoms. Allergies: Uncoded Allergies: SEAFOOD (Allergy, Unknown, 10/23/17) Patient History Past Medical History: see triage record Reviewed Nursing Documentation: PMH: Agreed; PSxH: Agreed Nursing Documentation-PMH Past Medical History: No History, Except For Hx Cardiac Problems: Yes Hx Hypertension: Yes Hx Asthma: Yes Hx Cancer: No Hx Gastrointestinal Problems: Yes Hx Neurological Problems: No Review of Systems All Other Systems: negative except mentioned in HPI Physical Exam Vital Signs Date Time Temp Pulse Resp B/P (MAP) Pulse Ox O2 Delivery O2 Flow Rate FiO2 11/21/18 13:54 97.9 78 14 146/93 94 Room Air Sp02 EP Interpretation: reviewed, normal General Appearance: well appearing, no apparent distress, alert, GCS 15, non- toxic Head: normocephalic, atraumatic Eyes: bilateral eye normal inspection, bilateral eye PERRL ENT: hearing grossly normal, normal pharynx, no angioedema, normal voice, uvula midline, moist mucus membranes Neck: full range of motion Respiratory: lungs clear, no rhonchi, no respiratory distress, no accessory muscle use, decreased breath sounds, speaking full sentences Cardiovascular #1: regular rate, rhythm, no edema Musculoskeletal: back normal, digits/nails normal, gait/station normal, normal range of motion, non-tender, no calf tenderness, Amy's Sign negative Neurologic: alert, oriented x3, responsive, motor strength/tone normal, sensory intact Psychiatric: mood/affect normal Medical Decision Making PA Attestation Dr. Leon is my supervising Physician whom patient management has been discussed with. Diagnostic Impression: Primary Impression: Asthma exacerbation ER Course Pt presents to ED c/o breathing difficulty, requesting refill of medication. DDX considered but are not limited to asthma, viral URI, influenza, bronchitis, pneumonia, PE. No rhonchi or rales, patient afebrile, low suspicion for pneumonia at this time , does not require x-rays or imaging. Low suspicion for PE per Well's criteria. VITAL SIGNS are WNL, patient is afebrile. ER COURSE Patient provided with prednisone and cough medication. Duoneb breathing treatment provided. Following treatment patient states no longer having difficulty with breathing. Lung sounds improved. Patient is resting comfortably in no acute distress. ER precautions given. Follow-up with primary care provider for further treatment and referral as needed. DISCHARGE: -Rx given for Prednisone. -Rx provided for Albuterol MDI. -Rx provided for Tessalon Perles At this time pt is stable for d/c to home. Patient is resting comfortably in no acute distress, nontoxic appearing, able to answer questions without difficulty. Patient to take medications as instructed Will provide with patient care instructions and any necessary prescriptions. Care plan and follow-up instructions provided. Patient instructed to follow-up with primary care provider in 3 - 5 days. Patient questions asked and answered. Patient reports understanding and agreement to treatment plan. ER precautions given. Patient instructed to return to ER immediately for any new or worsening of symptoms including but not limited to increasing SOB, persistent fever. - Please note that this Emergency Department Report was dictated using [employer] tiler technology software, occasionally this can lead to erroneous entry secondary to interpretation by the dictation equipment. Last Vital Signs Date Time Temp Pulse Resp B/P (MAP) Pulse Ox O2 Delivery O2 Flow Rate FiO2 11/21/18 13:56 74 16 Room Air 11/21/18 13:54 97.9 146/93 94 Status: improved Disposition: HOME, SELF-CARE Condition: Stable Scripts Benzonatate* (TESSALON PERLE*) 100 Mg Capsule 100 MG ORAL THREE TIMES A DAY, #30 PERLE Prov: Tejinder Madrid P.A. 11/21/18 Albuterol Sulfate* (ALBUTEROL SULFATE MDI*) 8.5 Gm Hfa.aer.ad 2 PUFF INH Q6H, #1 INH 0 Refills Prov: Tejinder Madrid P.A. 11/21/18 Prednisone* (PREDNISONE*) 20 Mg Tablet 40 MG ORAL DAILY for 4 Days, #8 TAB Prov: Tejinder Madrid.A. 11/21/18 Referrals: Siat NOLAN,REFERRING (PCP) Patient Instructions: Asthma, Adult Additional Instructions: Followup with primary care provider in 3 -5 days. Call to schedule appointment. Take medications as directed. Patient questions asked and answered. ER precautions given, patient instructed to return to ER immediately for any new or worsening of symptoms. Tejinder Madrid Nov 21, 2018 14:15
[2018-11-21] MEDS ORDERED: ALBUTEROL SULF8.5 GM INH (14:49)
[2018-11-21] MEDS ORDERED: TESSALON PERLE100 MG ORAL (14:49)
[2018-11-21] MEDS ORDERED: PREDNISONE20 MG ORAL (14:49)
[2018-11-21 14:57] VITALS: BP 133/78
--- NOTE | 2018-11-21 14:57 | NUR ---
Patient was evaluated, treated and discharged with aftercare instructions by MD/PA
== END 2018-11-21 14:57 | disposition home or self-care (01) ==
LOC: EMR 14:08
DX: J45.901 Unspecified asthma with (acute) exacerbation (principal); I10 Essential (primary) hypertension; Z91.013 Allergy to seafood
CPT/HCPCS: 94640; 99284; J7512; J7620